=== PATIENT | male | born 1960 | race Caucasian/White ===

== ENCOUNTER 2023-04-03 10:51 | Emergency (ER) | payer OTHER ==
[~2023-04-03] VITALS: Ht 165.1 cm; Wt 98.0 kg
[2023-04-03 11:12] VITALS: TEMP 98.5; O2SAT 98
[2023-04-03 11:45] VITALS: BP 118/92; PULSE 107; RESP 17
[2023-04-03] MEDS ORDERED: KETOROLAC 60MG/2ML VIAL IM ONE (11:45)
== END 2023-04-03 12:30 | disposition home or self-care (01) ==
LOC: ER 11:01
DX: M54.50 Low back pain, unspecified (principal); M79.606 Pain in leg, unspecified
CPT/HCPCS: 99283; 96372; J1885